=== PATIENT | male | born 1945 | race Caucasian/White ===

== ENCOUNTER → 2017-09-22 | Outpatient (REF) | payer MEDICARE, BC ==
[2014-07-31 08:30] VITALS: BMI 34.6
[~2017-09-22] MED LIST: APIX5TAB PO; ASPI-1471 PO; ATOR20TA22 PO; CYCL10TA29 PO; DICL-195 PO; DILT-145 PO; DILT30TA35 PO; DILT30TA63 PO; DIPH-741 PO; ESOM40CA42 PO; GABA-549 PO; HYDR-4308 PO; HYDR-5517 PO; HYDR8TAB PO; LEVO75TA73 PO; LUBI8CAP PO; MAG-65 PO; NICO-218 TD; NITR0.4T3 SL; PER PO; POLY17PO25 PO; RIVA15TA PO; SIMV-54 PO; SOLI5TAB PO; SPIR25TA76 PO; SPIR25TA78 PO; STATIN DRUG; SUCR1TAB51 PO; TADA5TAB7 PO; TAMS0.4C25 PO; TAPE50TA PO; TAPE50TA10 PO; TRIA15OI20 TP; ZOLP-1 PO; ZOLP-350 PO
== END ==
LOC: ZZSENDIN 16:22
PROVIDERS: ATTEND Family Medicine
DX: I87.2 Venous insufficiency (chronic) (peripheral) (principal)
CPT/HCPCS: 83880

== ENCOUNTER → 2017-12-18 | Outpatient (CLI) | payer MEDICARE, BC ==
[2014-07-31 08:30] VITALS: BMI 34.6
--- NOTE | 2017-12-19 09:50 | RADIOLOGY IMAGING REPORT ---
FAC[place] [facility] [place] NAME: Luis Donohue : 1945 MR: [id number] V: [id number] EXAM DATE: ORDERING PHYSICIAN: CORIN ELENA TECHNOLOGIST: Location: [facility] - [place] Patient: Luis Donohue : 1945 Visit/Account:[id number] Date of Sevice: 12/18/2017 EXAMINATION: CT Lumbar spine without intravenous contrast HISTORY: Radiculopathy COMPARISON: December 11, 2015 TECHNIQUE: Axial images were obtained through the lumbar spine without IV contrast administration. C oronal and sagittal reformatted images were generated from the source data. One of the following dose optimization techniques was utilized in the performance of this exam: autom ated exposure control; adjustment of the mA and/or kV according to patient size; or use of iterative reconstruction technique. Specific details can be referenced in the facility's radiology CT exam ope rational policy. FINDINGS: Alignment: 2.5 mm retrolisthesis of L2 on L3 similar to prior. 5 mm anterolisthesis of L5 on S1 erik lar to prior. Vertebral bodies and posterior elements: Normal vertebral body heights. No fracture or osseous destr uction. Screw tract lucencies from prior hardware at L4 noted. Fused right L3-4 facet joint. Fused posterior bone graft noted adjacent to the posterior elements at L2-L5. Mild L1-2, mild to moderate L2-3, mild to moderate L3-4, and mild L4-5 facet arthropathy. Disc Spaces: Mild L3-4 disc space degeneration. L5-S1 disc space prosthesis partially fused L5-S1 di sc space. Multilevel foraminal narrowing not well characterized by CT and most pronounced at the right L5-S1 le manuel. Hardware: Posterior fusion hardware with paraspinal rods and pedicle/vertebral body screws extends fr om L2 through L5. Pedicle/vertebral body screws at S1 are present. No apparent paraspinal debby conne cts the S1 screws to the lumbar paraspinal rods. The hardware is intact. No evidence of hardware lo osening. Posterior fusion hardware was previously present at L4-S1 on the prior. Visualized retroperitoneal/abdominal structures: Negative. IMPRESSION: 1. Posterior fusion hardware as described above. L5-S1 disc space prosthesis. No evidence of hardware loosening. Partial fusion of the L5-S1 disc space. 2. No acute finding. 3. Unchanged grade 1 anterolisthesis of L5 on S1. Report Dictated By: Faheem Morgan MD at 12/19/2017 9:23 AM Report E-Signed By: Faheem Morgan MD at 12/19/2017 9:46 AM WSN:[id number]
== END ==
LOC: CT 01:58
PROVIDERS: ATTEND Neurological Surgery
DX: Z96.7 Presence of other bone and tendon implants (principal); M43.16 Spondylolisthesis, lumbar region; M43.17 Spondylolisthesis, lumbosacral region
CPT/HCPCS: 72131

== ENCOUNTER → 2018-03-08 | Outpatient (CLI) | payer MEDICARE, BC ==
[2014-07-31 08:30] VITALS: BMI 34.6
[~2018-03-08] MED LIST changes: -SPIR25TA78 PO; +SPIR25TA80 PO
== END ==
LOC: RESP 19:39
PROVIDERS: ATTEND Internal Medicine Clinical Cardiac Electrophysiology
DX: G47.33 Obstructive sleep apnea (adult) (pediatric) (principal); G47.36 Sleep related hypoventilation in conditions classified elsewhere

== ENCOUNTER 2018-06-01 10:42 | Emergency (ER) | payer MEDICARE, BC ==
[2014-07-31 08:30] VITALS: Wt 121.6 kg
[2018-06-01] MEDS ORDERED: ATOR40TA24 PO (11:18)
[2018-06-01] MEDS ORDERED: APIX5TAB PO (11:18)
[2018-06-01] MEDS ORDERED: LUBI24CA14 PO (11:18)
[2018-06-01] MEDS ORDERED: MIRA50TA PO (11:18)
[2018-06-01] MEDS ORDERED: HYDR-4309 PO (11:18)
[2018-06-01] MEDS ORDERED: ZOLP-350 PO (11:18)
[2018-06-01 11:19] VITALS: BP 125/81
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
[2018-06-01] MEDS ORDERED: NICOTINE 21 MG/24 HR PATCH TD ONE (11:55)
[2018-06-01 12:05] LABS: PLATELET COUNT, AUTOMATED 232 K/uL (150-450)
--- NOTE | 2018-06-01 13:57 | EKG ---
FACILITY[place] [facility] [place]IENT NAME: MANDO RYAN : [id number] MR: [id number] V: [id number] EXAM DATE: ORDERING PHYSICIAN: WENDY FERNANDES TECHNOLOGIST: Test Reason : Hx of AFIB Blood Pressure : / mmHG Vent. Rate : 095 BPM Atrial Rate : 095 BPM P-R Int : 140 ms QRS Dur : 084 ms QT Int : 370 ms P-R-T Axes : 071 069 054 degrees QTc Int : 464 ms Sinus rhythm with premature supraventricular complexes Cannot rule out Inferior infarct Artifact in several leads makes interpretation difficult Abnormal ECG Confirmed by VY STUBBS ([id number]) on 06/01/2018 7:45:22 PM Referred By: Confirmed By:VY STUBBS
== END 2018-06-01 16:10 ==
LOC: ER 11:30
DX: F10.20 Alcohol dependence, uncomplicated (principal); R94.31 Abnormal electrocardiogram [ECG] [EKG]; I49.3 Ventricular premature depolarization
CPT/HCPCS: 36415; 80305; 81001; 83735; 84443; 85025; 93005; 99284; A9270; G0480; 80320; 80329; 82040; 82247; 82310; 82374; 82435; 82565; 82947; 84075; 84132; 84155; 84295; 84450; 84460; 84520

== ENCOUNTER 2018-06-01 13:49 | Inpatient (IN) | payer MEDICARE, BC ==
[2014-07-31 08:30] VITALS: Ht 152.4 cm; Wt 126.1 kg
[~2018-06-01] VITALS: Ht 152.4 cm; Wt 126.1 kg
[~2018-06-01 13:49] MED LIST changes: +ATOR40TA24 PO; -HYDR-4308 PO; +HYDR-653 PO; +HYDR-654 PO; +LUBI24CA14 PO; +MIRA50TA PO
[2018-06-01] MEDS ORDERED: MAG HYD/AL HYD/SIMETH 30ML UDC PO PRN (14:20)
[2018-06-01 14:40] VITALS: BP 116/80
[2018-06-01] MEDS ORDERED: DIAZEPAM 10 MG TAB PO PRN (14:45)
[2018-06-01 18:58] VITALS: BP 124/62
[2018-06-01] MEDS ORDERED: NITROGLYCERIN 0.4 MG SUBL SL PRN (20:00)
[2018-06-01] MEDS: APAP/HYDROCODONE 325/10 TAB PO SCH (20:47)
[2018-06-01] MEDS: GABAPENTIN 300 MG CAP PO SCH (20:47)
[2018-06-01] MEDS: APIXABAN 2.5 MG TABLET PO SCH (20:48)
[2018-06-01] MEDS: DIAZEPAM 10 MG TAB PO PRN (20:48)
[2018-06-01] MEDS: SPIRONOLACTONE 25 MG TAB PO SCH (20:49)
[2018-06-01] MEDS: ATORVASTATIN 40 MG TAB PO SCH (20:49)
[2018-06-01] MEDS: LUBIPROSTONE 24 MCG CAP PO SCH (20:51)
[2018-06-02 01:47] VITALS: BP 112/74
[2018-06-02] MEDS: DIAZEPAM 10 MG TAB PO PRN ×2 (01:59→05:44)
[2018-06-02] MEDS: APAP/HYDROCODONE 325/10 TAB PO SCH ×4 (02:30→21:42)
[2018-06-02 05:34] VITALS: BP 130/78
[2018-06-02] MEDS: LEVOTHYROXINE SOD 0.075 MG TAB PO SCH (05:44)
[2018-06-02] MEDS: MULTIVITAMINS TAB PO SCH (08:37)
[2018-06-02] MEDS: ASPIRIN 81 MG ENTERIC COATED PO SCH (08:37)
[2018-06-02] MEDS: GABAPENTIN 300 MG CAP PO SCH ×2 (08:37→21:45)
[2018-06-02] MEDS: FOLIC ACID 1 MG TAB PO SCH (08:37)
[2018-06-02] MEDS: THIAMINE HCL 100 MG TAB PO SCH (08:37)
[2018-06-02] MEDS: APIXABAN 2.5 MG TABLET PO SCH ×2 (08:38→21:44)
[2018-06-02] MEDS: SPIRONOLACTONE 25 MG TAB PO SCH ×3 (08:38→21:42)
[2018-06-02] MEDS: POLYETHYLENE GLYCOL 17 GM PKT PO SCH (08:39)
[2018-06-02] MEDS: NICOTINE 21 MG/24 HR PATCH TD SCH (08:39)
[2018-06-02] MEDS: LUBIPROSTONE 24 MCG CAP PO SCH ×2 (09:00→21:00)
[2018-06-02] MEDS ORDERED: APAP/HYDROCODONE 325/10 TAB PO PRN (11:40)
[2018-06-02] MEDS ORDERED: IBUPROFEN 200 MG TAB PO PRN (14:20)
[2018-06-02 15:40] VITALS: BP 108/68
[2018-06-02] MEDS: ACETAMINOPHEN 325 MG TAB PO PRN (15:56)
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
[2018-06-02] MEDS: ATORVASTATIN 40 MG TAB PO SCH (21:44)
[2018-06-02] MEDS: MIRTAZAPINE 15 MG TAB PO SCH (21:44)
[2018-06-02 22:56] VITALS: BP 110/64
[2018-06-03] MEDS: ACETAMINOPHEN 325 MG TAB PO PRN ×2 (05:36→13:53)
[2018-06-03 05:38] VITALS: BP 110/64
[2018-06-03] MEDS: LEVOTHYROXINE SOD 0.075 MG TAB PO SCH (06:03)
[2018-06-03] MEDS: POLYETHYLENE GLYCOL 17 GM PKT PO SCH (08:44)
[2018-06-03] MEDS: SPIRONOLACTONE 25 MG TAB PO SCH ×2 (08:44→21:41)
[2018-06-03] MEDS: THIAMINE HCL 100 MG TAB PO SCH (08:44)
[2018-06-03] MEDS: APIXABAN 2.5 MG TABLET PO SCH ×2 (08:45→21:41)
[2018-06-03] MEDS: FOLIC ACID 1 MG TAB PO SCH (08:45)
[2018-06-03] MEDS: ASPIRIN 81 MG ENTERIC COATED PO SCH (08:45)
[2018-06-03] MEDS: MULTIVITAMINS TAB PO SCH (08:45)
[2018-06-03] MEDS: APAP/HYDROCODONE 325/10 TAB PO SCH ×2 (08:45→21:40)
[2018-06-03] MEDS: GABAPENTIN 300 MG CAP PO SCH ×2 (08:45→21:40)
[2018-06-03] MEDS: LUBIPROSTONE 24 MCG CAP PO SCH ×2 (08:46→21:41)
[2018-06-03] MEDS: NICOTINE 21 MG/24 HR PATCH TD SCH (08:49)
[2018-06-03 12:10] VITALS: BP 122/72
--- NOTE | 2018-06-03 16:22 | BHS Progress Note ---
S - Subjective Progress Notes Subjective Pt seen in conference room. Pt improving. He has not had valium since yesterday. He had first dose of remeron last night (in effort to get him off ambien). Says he is not sure if it helped because we were encouraging him to push fluids all day yesterday, so he was up 9 times to urinate last night. Will decrease spironolactone to BID today since he says that's what he takes at home (despite being ordered for TID). Will also have him NOT push fluids after dinner. Plan is for team meeting in am so daughters and GF can all come up to speed with our recommendations for IOP, AA meetings, aftercare recommendations. Pt had continuous pulse ox last night showing hypoxia at about 87%. This is what his previous test 3 months ago showed and also he then had sleep study indicating need for o2 at night-- he has upcoming appointment with tax analyst to follow up. Also discussed with him very mild elevation in hgb a1c, at 6.1, and need for wt loss and f/u with Dr. Goff. Suicidal Ideation: None Homicidal Ideation: None [facility] - Objective Physical Exam Vital Signs Vital Signs 06/03/18 06/03/18 05:38 12:10 Temp 99.2 Pulse 71 Resp 18 B/P (MAP) 122/72 (89) Pulse Ox 92 O2 Delivery Room Air O2 Flow Rate 2.0 Muscle Strength and Tone: WNL Gait and Station: Unsteady (uses cane or walker at baseline) BHS Medications Reviewed: Side Effects, Benefits of Medication Allergies Reviewed: Yes Mental Status Exam General Appearance: Casual, Good Eye Contact, Cooperative, Polite, Good Interaction Speech: Clear, Spontaneous, Normal Rate, Normal Rhythm, Normal Volume, Normal Tone Mood: Euthymic Affect: Full and Appropriate, Calm Thought Process: Organized, Logical, Goal Directed Thought Content: No Suicidal Ideation, No Homicidal Ideation, No Delusions, No Auditory Halllucinations, No Visual Hallucinations, No Thought Broadcasting, No Ideas of Reference, No Obsessions, No Compulsions, No Other Sensorium: Clear Cognition: Alert & Oriented-Person, Alert & Oriented-Place, Alert & Oriented- Time, Kybrp-Mfkbiljc-Nyqwbzvnh Memory: Immediate, Recent, Remote Intelligence: Average Insight Judgment: Fair S Assessment and Plan Mbfs-dw-Ltxl Encounter Date: Jun 03, 2018 Stqs-hp-Wagh Encounter Time: 09:30 [facility] Plan: Admit to Unit, Necessary Precautions, Individual/Group Therapy, Admin/Titrate Meds, Educate Patient Tobacco Medications: Started Multpiple Antipsychotics Used: No Problems: (1) Alcohol use disorder, severe, dependence (2) Alcohol withdrawal CLAUDIA PAREDES MD Jun 03, 2018 16:22
[2018-06-03 21:00] VITALS: BP 120/70
[2018-06-03] MEDS: MIRTAZAPINE 15 MG TAB PO SCH (21:40)
[2018-06-03] MEDS: ATORVASTATIN 40 MG TAB PO SCH (21:40)
[2018-06-04] MEDS: ACETAMINOPHEN 325 MG TAB PO PRN (05:52)
[2018-06-04 05:53] VITALS: BP 122/76
[2018-06-04] MEDS: LEVOTHYROXINE SOD 0.075 MG TAB PO SCH (05:53)
[2018-06-04] MEDS: FOLIC ACID 1 MG TAB PO SCH (08:11)
[2018-06-04] MEDS: GABAPENTIN 300 MG CAP PO SCH (08:11)
[2018-06-04] MEDS: APAP/HYDROCODONE 325/10 TAB PO SCH (08:11)
[2018-06-04] MEDS: MULTIVITAMINS TAB PO SCH (08:12)
[2018-06-04] MEDS: ASPIRIN 81 MG ENTERIC COATED PO SCH (08:12)
[2018-06-04] MEDS: POLYETHYLENE GLYCOL 17 GM PKT PO SCH (08:12)
[2018-06-04] MEDS: THIAMINE HCL 100 MG TAB PO SCH (08:12)
[2018-06-04] MEDS: LUBIPROSTONE 24 MCG CAP PO SCH (08:12)
[2018-06-04] MEDS: APIXABAN 2.5 MG TABLET PO SCH (08:12)
[2018-06-04] MEDS: SPIRONOLACTONE 25 MG TAB PO SCH (08:12)
[2018-06-04] MEDS: NICOTINE 21 MG/24 HR PATCH TD SCH (08:13)
[2018-06-04] MEDS ORDERED: MIRT-1 PO (11:01)
[2018-06-04] MEDS ORDERED: FOLI-68 PO (13:01)
[2018-06-04] MEDS ORDERED: THIA100T62 PO (13:02)
[2018-06-04] MEDS ORDERED: NICO-218 TD (13:03)
[2018-06-04] MEDS ORDERED: MULT-859 PO (13:05)
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
== END 2018-06-04 16:52 | disposition home or self-care (01) | DRG 897 ==
LOC: BHS 13:49
PROVIDERS: ADMIT Psychiatry & Neurology Psychiatry; ATTEND Psychiatry & Neurology Psychiatry
DX: F10.230 Alcohol dependence with withdrawal, uncomplicated (principal); G89.29 Other chronic pain; I25.2 Old myocardial infarction; K58.9 Irritable bowel syndrome, unspecified; G47.30 Sleep apnea, unspecified; R09.02 Hypoxemia; Z88.8 Allergy status to other drugs, medicaments and biological substances; Z98.1 Arthrodesis status; Z81.1 Family history of alcohol abuse and dependence; Z95.5 Presence of coronary angioplasty implant and graft
CPT/HCPCS: 36415; 82607; 82746; 83036

== ENCOUNTER → 2018-06-08 | Outpatient (CLI) | payer MEDICARE, BC ==
[2014-07-31 08:30] VITALS: BMI 34.6
[~2018-06-08] MED LIST changes: +FOLI-68 PO; +MIRT-1 PO; +MULT-859 PO; +THIA100T62 PO
--- NOTE | 2018-06-08 14:57 | RADIOLOGY IMAGING REPORT ---
FACILITY: [facility] PATIENT NAME: Luis Donohue : 1945 MR: [id number] V: [id number] EXAM DATE: ORDERING PHYSICIAN: EVANS PASTOR TECHNOLOGIST: [facility] Patient: Luis Donohue : 1945 Visit/Account:[id number] Date of Sevice: 06/08/2018 CT CHEST HIGH RES WO CONTRAST EXAMINATION: CT Thorax W/O Contrast HISTORY: Interstitial lung disease TECHNIQUE: High resolution CT chest protocol: A non-intravenous enhanced contiguous spiral scan was obtained through the chest. This was followed by inspiration and expiration 1 mm thick high-resolutio n axial images at 15 mm intervals, reconstructed using a high spatial resolution algorithm. High-reso lution prone imaging was also performed One of the following dose optimization techniques was utilized in the performance of this exam: Autom ated exposure control; adjustment of the mA and/or kV according to the patient's size; or use of an i terative reconstruction technique. Specific details can be referenced in the facility's radiology C T exam operational policy. COMPARISON STUDIES: None. FINDINGS: Chest survey: There is atherosclerotic calcification of the great vessels, thoracic aorta, aortic gary ve and coronary vessels. No pathologic mediastinal adenopathy. The upper abdomen is unremarkable. Patient has bilateral gynecomastia. The osseous structures demonstrate mild degenerative changes. High Resolution Inspiration images: There is some incidental benign-appearing scarring in the right u pper lobe. No significant underlying interstitial lung disease. No significant pathology at the level the secondary pulmonary lobule. Some perhaps very minimal changes of emphysema noted at the lung api nila. High Resolution Expiration images: No significant airway gas trapping IMPRESSION: 1. No significant interstitial lung disease. There appears to be some trivial changes of emphysema in the lung apices. Benign-appearing scarring in the right upper lobe is noted. 2. Atherosclerotic calcification Report Dictated By: Luis Pickett MD at 06/08/2018 2:41 PM Report E-Signed By: Luis Pickett MD at 06/08/2018 2:51 PM WSN:[id number]
== END ==
LOC: CT 00:24
PROVIDERS: ATTEND Internal Medicine
DX: I25.10 Atherosclerotic heart disease of native coronary artery without angina pectoris (principal); I70.0 Atherosclerosis of aorta; N62 Hypertrophy of breast; J44.9 Chronic obstructive pulmonary disease, unspecified
CPT/HCPCS: 71250; 94060; 94726; 94729

== ENCOUNTER 2018-06-16 20:04 | Emergency (ER) | payer MEDICARE, BC ==
[2014-07-31 08:30] VITALS: Wt 128.4 kg
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
[2018-06-16 20:52] LABS: PLATELET COUNT, AUTOMATED 397 K/uL (150-450)
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
[2018-06-16 22:22] LABS: INR 1.12
[2018-06-16 22:30] VITALS: BP 137/81
== END 2018-06-16 23:07 | disposition short-term general hospital (02) ==
LOC: ER 20:21
DX: S06.5X9A Traumatic subdural hemorrhage with loss of consciousness of unspecified duration, initial encounter (principal)
CPT/HCPCS: 70450; 82040; 82247; 82310; 82374; 82435; 82565; 82947; 84075; 84132; 84155; 84295; 84450; 84460; 84520; 85025; 85610; 85651; 85730; 86140; 99291

== ENCOUNTER → 2018-06-16 | Outpatient (CLI) | payer MEDICARE, BC ==
[2014-07-31 08:30] VITALS: BMI 34.6
== END ==
LOC: AMB 22:46
PROVIDERS: ATTEND Nurse Practitioner
DX: S06.5X9A Traumatic subdural hemorrhage with loss of consciousness of unspecified duration, initial encounter (principal); R51 Headache
CPT/HCPCS: A0425; A0426; A0888

== ENCOUNTER → 2018-07-26 | Outpatient (CLI) | payer MEDICARE, BC ==
[2014-07-31 08:30] VITALS: BMI 34.6
--- NOTE | 2018-07-26 12:14 | RADIOLOGY IMAGING REPORT ---
FACILITY: [facility] [place] PATIENT NAME: Luis Donohue : 1945 MR: [id number] V: [id number] EXAM DATE: [id number] ORDERING PHYSICIAN: TINY CHAU TECHNOLOGIST: Location: [facility] Patient: Luis Donohue : 1945 Visit/Account:[id number] Date of Sevice: 07/26/[address] scan without contrast COMPARISONS: PET/CT scan dated June 16, 2018 ADDITIONAL PERTINENT HISTORY: Follow-up subdural hematoma from May 2018 TECHNIQUE: Multiple axial images were obtained from the skull base to the vertex without IV contrast . One of the following dose optimization techniques was utilized in the performance of this exam: Aut omated exposure control; adjustment of the mA and/or kV according to the patient's size; or use of an iterative reconstruction technique. Specific details can be referenced in the facility's radiology CT exam operational policy. FINDINGS: Midline shift: Resolution of midline shift from previous exam. Ventricles: Negative Brain parenchyma: Patchy hypoattenuation within the periventricular and subcortical white matter, no nspecific but likely representing small vessel ischemic change on a chronic basis. Extra-axial spaces: Interval resolution of a previously described right cerebral hemispheric subdura l hematoma. Continued moderate cerebral atrophy. Intracranial vasculature: Cavernous internal carotid artery calcifications. Otherwise negative Osseous structures: Previous posterior right frontal brandy hole placement. Otherwise negative Paranasal sinuses and mastoid air cells: Mild mucosal thickening involving both maxillary sinuses. Surrounding soft tissues and orbits: Negative IMPRESSION: 1. Patient status post previous evacuation of a right cerebral hemispheric subdural hematoma 2. Resolution of midline shift from previous exam. 3. Stable age-related changes as described above. Report Dictated By: Marvin Escalera MD at 07/26/2018 12:06 PM Report E-Signed By: Marvin Escalera MD at 07/26/2018 12:09 PM WSN:[id number]
== END ==
LOC: CT 00:39
PROVIDERS: ATTEND Nurse Practitioner Acute Care
DX: S06.5X9A Traumatic subdural hemorrhage with loss of consciousness of unspecified duration, initial encounter (principal)
CPT/HCPCS: 70450

== ENCOUNTER → 2018-08-31 | Outpatient (CLI) | payer MEDICARE, BC ==
[2014-07-31 08:30] VITALS: BMI 34.6
== END ==
LOC: RESP 19:49
PROVIDERS: ATTEND Internal Medicine
DX: G47.33 Obstructive sleep apnea (adult) (pediatric) (principal); G47.36 Sleep related hypoventilation in conditions classified elsewhere; G47.61 Periodic limb movement disorder

== ENCOUNTER → 2018-10-29 | Outpatient (RCR) | payer MEDICARE, BC ==
[2014-07-31 08:30] VITALS: BMI 34.6
--- NOTE | 2018-08-02 10:19 | PT INITIAL EVALUATION ---
MEDICAL DIAGNOSIS: L) posterior heel; unstageable pressure ulcer with black necrotic tissue obscuring base of wound TREATMENT DIAGNOSIS: same DATE OF ONSET: May 2018 SUBJECTIVE: Pt presents to OP PT with an unstageable pressure ulcer located on his posterior L) heel. Pt was referred for wound eval and management by marketing manager health communications, Dr. Haynes. Dr. Haynes applied a bandage to L heel, however pt removed this bandage because he reported the bandage got wet from the shower and was too constrictive. 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 However, pt reported this pressure ulcer presented about two months ago which was about the same time he was admitted into the [facility] for a subdural hematoma evacuation. Pt reported the pressure ulcer was initially the size of a silver dollar but appeared to be a blister. Pt reports he checks his feet for abrasions and ulcers when he is sitting in the shower. REHAB PROBLEM LIST: Unstageable pressure ulcer on posterior L) heel PREVIOUS MEDICAL HISTORY: B) LE neuropathy. Possible DMII; waiting on results. OBJECTIVE: Redness noted surrounding wound bed and marked with permanent marker to monitor changes. Periwound skin pink in color demonstrating scar tissue, as wound was previously quite a bit larger. Dark necrotic center measures 3.5cm L x 3.5cm W and at least 0.1cm in depth, but unable to measure total deep tissue injury. Palpation: Tender to palpation at L) heel surrounding wound bed as well as wound bed itself. Sensation: B) neuropathy reported in lower legs. Special Tests: Capillary refill > 4 seconds on L) foot. Mobility: Independent with use of SPC for balance and wearing diabetic slippers ASSESSMENT: Surrounding wound area shows redness and tenderness to palpation. Wound bed is also tender to palpation. The visible redness surrounding the wound bed was outlined in permanent marker and marked with the date in order to be able to assess an increase/decrease in redness at next visit. Wound bed is hard with necrotic tissue and slough present. Wound measures 3.5cm L x 3.5cm W x 0.1cm D, however present necrotic tissue and slough obscure the true depth of the pressure ulcer. The wound was cleansed with sterile saline and gauze. Bee was applied around the wound area to protect the surrounding skin. Betadine was applied onto the necrotic tissue and edges of wound. The wound was covered with a bordered silicone 6x6 pad and edges reinforced with Tegaderm to seal corners. Pt was educated on the signs and symptoms to report, including redness extending past area of demarcation, as well as the importance of monitoring feet with a mirror to ensure all areas of the skin are checked for ulcers or abrasions. Short Term Goals 1. Wound bed to remain dry and stable with no further signs of redness or tenderness. 2. Pt to maintain dry, clean, and intact dressings in between visits. 3. Wound to completely re-epithelialize with debridement of necrotic tissue beveled at edges to avoid disruption of depth of wound bed, if this area remains stable. 4. Pt to adhere to self-monitoring of skin integrity of B) feet for prevention of future wounds. Patient's Goals Wound to heal without complications PLAN: Pt to be seen for non-excisional debridement with the use of sharps in order to bevel non-viable tissue and necrotic scab to avoid disruption of depth of wound bed, as re-epithelialization occurs beneath scab. Pt to be instructed in aggressive off loading to avoid any pressure at this site at all and allow for healing from the depth upward. PT to provide selection of advanced wound care products to efficiently allow for air exchange to maintain a slightly curtain drier environment, while keeping wound bed clean and decrease risk of infection. If wound bed begins to drain or experience increased fluctuance, debridement of necrotic tissue may become necessary and will be completed in a conservative manner to remove only that tissue creating an increased infectious bioburden; 1x/week for 3 months. Thank you for this referral. If you have any questions, comments, or concerns about this report or plan, please contact me at . H. Sherley Dial, PT, MPT MTDD
== END ==
LOC: PT 07-31 10:30
PROVIDERS: ATTEND Podiatrist Foot & Ankle Surgery
DX: L89.623 Pressure ulcer of left heel, stage 3 (principal)
CPT/HCPCS: 97161